=== PATIENT | male | born 1960 | race Caucasian/White ===

== ENCOUNTER 2016-10-19 10:11 | Emergency (ER) | payer OTHER ==
[2016-10-19] MEDS ORDERED: LORazepam TAB(*) 1 MG PO ONE (12:15)
--- NOTE | 2016-10-19 13:04 | RAD ---
HISTORY: Trauma COMPARISONS: None TECHNIQUE: Multiple contiguous axial CT scans were obtained of the cervical spine without intravenous contrast, with coronal and sagittal multiplanar reformations. FINDINGS: BRAIN: The visualized brain is unremarkable CENTRAL CANAL: Evaluation of the central canal is limited on CT technique; however, there is no obvious canalicular mass or epidural hemorrhage. ALIGNMENT: There is straightening of the cervical lordosis. VERTEBRAL BODIES: There is no displaced fracture. Is multilevel anterolateral marginal osteophyte formation. JOINTS: There is uncovertebral, facet, and atlantoaxial osteoarthritis. MUSCULATURE: Unremarkable INTERVERTEBRAL DISCS: There is diffuse loss of intervertebral disc height. AXIAL IMAGES: C2-C3: There is no osseous neural foraminal narrowing or central canal stenosis. C3-C4: There is no osseous neural foraminal narrowing or central canal stenosis. C4-C5: There is bilateral uncovertebral and facet hypertrophy. There is no significant osseous neural foraminal narrowing or central canal stenosis. C5-C6: There is bilateral uncovertebral and facet hypertrophy. There is moderate bilateral neural foraminal area. There is no osseous central canal stenosis. C6-C7: There is bilateral uncovertebral and facet hypertrophy. There is moderate bilateral neuroforaminal narrowing. There is no osseous central canal stenosis. C7-T1: There is right greater than left facet hypertrophy. There is mild right neural foraminal narrowing. There is no osseous central canal stenosis. SOFT TISSUES: The visualized soft tissues of the neck are unremarkable. The prevertebral fat stripe is preserved. OTHER: None. IMPRESSION: DEGENERATIVE DISC DISEASE AND OSTEOARTHRITIS. NO ACUTE OSSEOUS INJURY TO CERVICAL SPINE
[2016-10-19 13:48] VITALS: BP 126/83
--- NOTE | 2016-10-19 13:53 | ED ---
Kayla Arriaga Thomas, scribed for José Manuel Espinosa MD on 10/19/16 at 1210 . Neck Pain - HPI Summary HPI Summary: The pt is a 56 y/o M presenting to the ED c/o neck pain that began 1 week ago s/ p a fall. He reports that he hit his head on his countertop. The pain radiates into his L arm down to the elbow. The pain is rated 9/10. The pain is aggravated and alleviated by nothing. The patient has treated the pain with his normal pain medications [employer]. Pt additionally c/o inability to move L arm secondary to the pain and inability to move head secondary to the pain. Pt denies any motor impairment to his arms or any neurological deficits. PMHx: dislocated vertebrae, neuropathy, DM, HTN, KS, COPD, and arthritis. PSHx: cardiac catheterization, umbilical hernia, and tonsillectomy. SHx: smoking, no alcohol use, no illicit drug use. He is currently taking many pain medications for his neuropathy. - History of Current Complaint Chief Complaint: EDNeckComplaint Stated Complaint: FALL 1 WEEK AGO/LT ARM AND NECK PAIN Time Seen by Provider: 10/19/16 12:00 Hx Obtained From: Patient Onset/Duration Of Injury/Symptoms: Weeks - 1 Mechanism Of Injury: Other - fall Onset/Duration: Sudden Onset, Started weeks ago - 1 Pain Intensity: 9 Pain Scale Used: 0-10 Numeric Location: Discrete At: - neck and radiates into L arm down to the elbow Aggravating Factors: Nothing Alleviating Factors: Nothing Related History: Other - Pt is taking many pain medications for his neuropathy - Allergies/Home Medications Allergies/Adverse Reactions: Allergies Allergy/AdvReac Type Severity Reaction Status Date / Time Shellfish Allergy Allergy TONGUE Verified 12/30/14 10:04 SWELL ENVIRONMENTAL/HAYFEVER Allergy Unknown Uncoded 12/30/14 10:04 Reaction Details PMH/Surg Hx/FS Hx/Imm Hx Previously Healthy: No Endocrine/Hematology History: Reports: Hx Diabetes - TYPE 2 Cardiovascular History: Reports: Hx Angina, Hx Coronary Artery Disease - CHOLESTEROL CONTROL, Hx Hypercholesterolemia, Hx Hypertension, Hx Myocardial Infarction Denies: Hx Pacemaker/ICD, Hx Valvular Heart Disease Comment Only: Other Cardiovascular Problems/Disorders - DR. LOPEZ Respiratory History: Reports: Hx Asthma - INHALERS PRN, Hx Chronic Obstructive Pulmonary Disease (COPD), Hx Seasonal Allergies - Enviromental Allergies, Hx Sleep Apnea GI History: Reports: Hx Gastroesophageal Reflux Disease, Hx Hiatal Hernia Denies: Other GI Disorders History: Reports: Hx Kidney Stones Musculoskeletal History: Reports: Hx Arthritis, Hx Back Problems, Other Musculoskeletal History - 1 OR 2 RUPTURED DISC- NECK AND LOWER BACK Sensory History: Reports: Hx Contacts or Glasses - GLASSES Denies: Hx Hearing Aid Opthamlomology History: Reports: Hx Contacts or Glasses - GLASSES Neurological History: Reports: Other Neuro Impairments/Disorders - Head Injury age 4yrs Psychiatric History: Reports: Hx Anxiety, Hx Depression Denies: Hx Panic Disorder - Surgical History Surgery Procedure, Year, and Place: 2008 RIGHT CARPAL TUNNEL RELEASE, [facility]. 2012 RIGHT WRIST ANGIOGRAM, [facility]. 1979' ARTHROSCOPIC SURGERY RIGHT KNEE CAP, [place], [place]. [address] [facility]. TONSILLECTOMY A CHILD. UMBILICAL HERNIA - 2011. KIDNEY STONE REMOVED Hx Anesthesia Reactions: Yes - WAKES UP DURING ANY GENERAL/TAKES LONGER TO GET ORIENTED Infectious Disease History: Denies: History Other Infectious Disease, Traveled Outside the in Last 30 Days - Family History Known Family History: Positive: Diabetes - Social History Alcohol Use: None Substance Use Type: Reports: Excessive Caffeine Substance Use Comment - Amount & Last Used: 3-4 POTS A DAY. Smoking Status (MU): Heavy Every Day Tobacco Smoker Type: Cigarettes Amount Used/How Often: 1/2 -1PCK Length of Time of Smoking/Using Tobacco: 40+ YEARS Have You Smoked in the Last Year: Yes Review of Systems Negative: Fever Positive: Other - POS: neck pain (11/10, s/p fall a week ago, radiates into L arm ), inability to move L arm and neck secondary to the pain Neurological: Other - NEG: any motor impairments or neurological deficits All Other Systems Reviewed And Are Negative: Yes Physical Exam Triage Information Reviewed: Yes Vital Signs On Initial Exam: Initial Vitals Temp Pulse Resp BP Pulse Ox 97.8 F 85 18 143/88 96 10/19/16 10:15 10/19/16 10:15 10/19/16 10:15 10/19/16 10:15 10/19/16 10:15 Vital Signs Reviewed: Yes Appearance: Positive: Well-Appearing, No Pain Distress Skin: Positive: Warm, Skin Color Reflects Adequate Perfusion, Dry Head/Face: Positive: Normal Head/Face Inspection Eyes: Positive: Normal ENT: Positive: Normal ENT inspection Neck: Positive: Supple, Nontender Respiratory/Lung Sounds: Positive: Clear to Auscultation, Breath Sounds Present Cardiovascular: Positive: RRR Abdomen Description: Positive: Nontender, Soft Bowel Sounds: Positive: Present Musculoskeletal: Positive: Other - There is tenderness to the left paracervical and rhomboid area Neurological: Positive: Normal Psychiatric: Positive: Normal, Affect/Mood Appropriate Diagnostics - Vital Signs Vital Signs Temp Pulse Resp BP Pulse Ox 10/19/16 10:15 97.8 F 85 18 143/88 96 - Laboratory Lab Statement: Any lab studies that have been ordered have been reviewed, and results considered in the medical decision making process. - CT CT C-Spine CT Interpretation: No Acute Changes - DEGENERATIVE DISC DISEASE AND OSTEOARTHRITIS. NO ACUTE OSSEOUS INJURY TO CERVICAL SPINE CT Interpretation Completed By: Radiologist Re-Evaluation - Re-Evaluation First Eval Re-Evaluation Time: 13:38 Change: Improved Comment: The pt feels better. Neck Course/Dx - Course Course Of Treatment: Mr. Dinh was given ativan as a muscle relaxant while a CT was obtained. He felt a lot better and after some rest, he was D/C'd to F/U with his PMD. - Diagnoses Provider Diagnoses: Cervical strain Discharge - Discharge Plan Condition: Stable Disposition: HOME Prescriptions: LORazepam TAB(*) [Ativan TAB(*)] 1 mg PO Q6H PRN #20 tab MDD 4 PRN Reason: Pain Patient Education Materials: Cervical Strain (ED) Referrals: Mei Terrell MD [Primary Care Provider] - 3 Days The documentation as recorded by the Kayla torres Thomas accurately reflects the service I personally performed and the decisions made by me, José Manuel Espinosa MD.
== END 2016-10-19 13:47 | disposition home or self-care (01) ==
LOC: ED 10:11
DX: S16.1XXA Strain of muscle, fascia and tendon at neck level, initial encounter (principal); M54.2 Cervicalgia; F17.210 Nicotine dependence, cigarettes, uncomplicated; W19.XXXA Unspecified fall, initial encounter; Y93.9 Activity, unspecified; Y92.9 Unspecified place or not applicable; E11.9 Type 2 diabetes mellitus without complications
CPT/HCPCS: 72125; 99282; A9270-GY

== ENCOUNTER 2024-02-17 17:32 | Observation (INO) ==
[2024-02-17] MEDS: Iodixanol 320 (CONTRAST) 100 ML SDV IV ONE (17:57)
[2024-02-17 18:02] LABS: ABS Basophils 0.2 10^3/uL (0.0-0.1); ABS Eosinophils 0.4 10^3/uL (0.0-0.5); ABS Lymphocytes 1.9 10^3/uL (1.0-4.8); ABS Monocytes 0.8 10^3/uL (0.0-1.1); ABS Neutrophils 8.5 10^3/uL (1.5-7.6); Hematocrit 41.8 % (38-53); Hemoglobin 14.3 g/dL (13.2-16.3); Lymphocyte % 16.4 %; Mean Corpuscular Hemoglobin 30.2 pg (27-33); Mean Corpuscular Hgb Conc 34.1 g/dL (31-36); Mean Corpuscular Volume 88.7 fL (80-97); Platelet Count 440 10^3/uL (150-450); Red Blood Count 4.72 10^6/uL (4.06-5.63); Red Cell Distribution Width 13.8 % (12-17); White Blood Count 11.7 10^3/uL (3.6-10.2)
[2024-02-17 18:15] LABS: Activated Partial Thrombo Time 33.7 seconds (26.0-38.0); INR 0.95 (0.85-1.14)
[2024-02-17 18:44] LABS: Albumin 4.6 g/dL (3.2-5.2); Albumin/Globulin Ratio 1.9 (1-3); Calcium 11.1 mg/dL (8.6-10.3); Creatinine, Serum 1.8 mg/dL (0.67-1.17); Direct Bilirubin 0.1 mg/dL (0.03-0.18); Globulin 2.4 g/dL (2-4); HDL Cholesterol 31.3 mg/dL; Indirect Bilirubin 0.2 mg/dL (0.3-1.0); Potassium 4.1 mmol/L (3.5-5.0); Total Bilirubin 0.3 mg/dL (0.2-1.0); eGFR CKD-EPI 41.8 (>60)
[2024-02-17 19:36] LABS: Urine Appearance Clear; Urine Bilirubin Negative (Negative); Urine Blood Negative (Negative); Urine Color Light-Yellow; Urine Glucose 4+ (>=1000 mg/dL) (Negative); Urine Ketones Negative (Negative); Urine Nitrite Negative (Negative); Urine Protein Negative (Negative); Urine Specific Gravity 1.009 (1.002-1.030); Urine Urobilinogen Negative (Negative); Urine pH 6.5 (5.0-8.0)
[2024-02-17] MEDS ORDERED: Sulfur Hexaflouride MICROSPHR 25 MG VIAL IV PRN (21:33)
[2024-02-17] MEDS: Morphine ER 30 mg TAB ** extended release PO ONE (21:58)
[2024-02-17] MEDS: Aspirin EC 81 mg TAB.EC (enteric coated) PO SCH (21:59)
[2024-02-17] MEDS ORDERED: Dextrose 50% Syringe 50 ml 25 GM/50 ML SYRINGE IV PUSH PRN (22:38)
[2024-02-17] MEDS ORDERED: HYDROcodone/Acetamin 10/325 TAB (NF) PO PRN (22:49)
[2024-02-17] MEDS: MORPHINE 60 MG PO SCH (22:57)
[2024-02-17] MEDS: Insulin GLARGINE 100 un/ml 10 ml VIAL SUBCUT SCH (22:58)
[2024-02-17] MEDS: Insulin GLARGINE 100 un/ml 10 ml VIAL SUBCUT ONE (23:53)
[2024-02-18 05:56] LABS: ABS Basophils 0.2 10^3/uL (0.0-0.1); ABS Eosinophils 0.5 10^3/uL (0.0-0.5); ABS Lymphocytes 2.6 10^3/uL (1.0-4.8); ABS Neutrophils 6.1 10^3/uL (1.5-7.6); Eosinophil % 4.9 %; Hematocrit 40.5 % (38-53); Hemoglobin 14.2 g/dL (13.2-16.3); Lymphocyte % 25.2 %; Mean Corpuscular Hemoglobin 30.9 pg (27-33); Mean Corpuscular Hgb Conc 35.1 g/dL (31-36); Mean Corpuscular Volume 88.1 fL (80-97); Mean Platelet Volume 7.9 fL (7.5-11.2); Platelet Count 421 10^3/uL (150-450); Red Cell Distribution Width 13.8 % (12-17); White Blood Count 10.5 10^3/uL (3.6-10.2)
[2024-02-18 06:33] LABS: Albumin/Globulin Ratio 1.7 (1-3); Calcium 10.3 mg/dL (8.6-10.3); Creatinine, Serum 1.4 mg/dL (0.67-1.17); Globulin 2.3 g/dL (2-4); Magnesium 1.8 mg/dL (1.9-2.7); Total Bilirubin 0.3 mg/dL (0.2-1.0); Total Protein 6.3 g/dL (6.4-8.9); eGFR CKD-EPI 56.5 (>60)
[2024-02-18] MEDS: Mometasone/Formoter 200/5 MDI INH SCH (07:37)
[2024-02-18] MEDS: Enoxaparin 40 MG/0.4 ML SYR SUBCUT SCH (08:01)
[2024-02-18] MEDS: CMC:Fenofibrate 145 mg TAB (NF) PO SCH (08:09)
[2024-02-18] MEDS: Morphine ER 30 mg TAB ** extended release PO SCH (08:10)
[2024-02-18] MEDS: Insulin GLARGINE 100 un/ml 10 ml VIAL SUBCUT SCH (08:11)
[2024-02-18] MEDS ORDERED: Aspirin EC 81 mg TAB.EC (enteric coated) PO SCH (09:00)
[2024-02-18 11:08] VITALS: BP 173/85
== END 2024-02-18 15:49 | disposition short-term general hospital (02) ==
LOC: EDHOLD 17:32 → ED 17:32 → MEDTELE 02-18 10:44 → EDHOLD 02-18 15:57
PROVIDERS: ADMIT Student in an Organized Health Care Education/Training Program; ATTEND Internal Medicine